=== PATIENT | female | born 1995 | race Caucasian/White ===

== ENCOUNTER 2022-03-20 09:49 | Emergency (ER) | payer BC, SELFPAY ==
[2022-03-20 09:50] VITALS: BP 105/88; PULSE 71; RESP 20; TEMP 36.4; O2SAT 100
--- NOTE | 2022-03-20 10:00 | ED.FEMALEGU ---
HPI - Female Genitourinary General Chief complaint: Urogenital-Female Stated complaint: Uti Time Seen by Provider: 03/20/22 09:53 History of Present Illness HPI Narrative: 26-year-old female presents the emergency room for evaluation of suprapubic pain and dysuria. Patient was seen in urgent care yesterday for similar symptoms and diagnosed with a urinary tract infection. Patient was started on Macrobid and Azo. Patient states that she has taken 2 doses of Macrobid, and is not feeling any relief yet. Patient denies fever. Related Data Allergies Allergy/AdvReac Type Severity Reaction Status Date / Time No Known Allergies Allergy Mild Verified 03/20/22 10:15 Review of Systems Review of Systems: CONSTITUTIONAL: Denies fever, chills, or sweats. EYES: Denies visual changes, redness, or discharge. ENT: Denies rhinorrhea, congestion, sore throat, or otalgia. CARDIOVASCULAR: Denies chest pain, palpitations, or edema. RESPIRATORY: Denies cough or dyspnea. GASTROINTESTINAL: Denies abdominal pain, nausea, vomiting, or diarrhea. GENITOURINARY: Reports dysuria and hematuria SKIN: Denies rash or itching. MUSCULOSKELETAL: Denies back pain, joint pain, or myalgia. NEUROLOGIC: Denies headache, numbness, dizziness, or weakness. PSYCHIATRIC: Denies anxiety or depression. Exam Narrative: GENERAL: Well-appearing, well-nourished, no physical limitations, and in no acute distress. HEAD: Normocephalic, atraumatic. EYES: Conjunctivae normal, PERRLA and EOMI. CHEST: Clear to auscultation. No respiratory distress. No wheezes rales or rhonchi. No tenderness. HEART: Regular rate and rhythm. No murmur heard. Normal peripheral pulses. ABDOMEN: Soft, suprapubic tenderness, nondistended, normal active bowel sounds. BACK: No CVA tenderness EXTREMITIES: Normal range of motion. No edema. No clubbing or cyanosis SKIN: Warm, dry, no rash. No noted wounds NEURO: No focal deficits. Alert and oriented x3. MAEW. CN's II-XI intact bilaterally, normal gait PSYCH: Cooperative. Normal mood and affect. Course Vital Signs Vital signs: Vital Signs Temperature 36.4 C 03/20/22 09:50 Pulse Rate 71 03/20/22 09:50 Respiratory Rate 20 03/20/22 09:50 Blood Pressure 105/88 03/20/22 09:50 Pulse Oximetry 100 03/20/22 09:50 Oxygen Delivery Room Air 03/20/22 09:50 Temperature 36.4 C 03/20/22 09:50 Pulse Rate 73 03/20/22 10:48 Respiratory Rate 18 03/20/22 10:48 Blood Pressure 125/83 03/20/22 10:48 Pulse Oximetry 97 03/20/22 10:48 Oxygen Delivery Room Air 03/20/22 09:50 MDM - Female Genitourinary Lab Data Labs: Lab Results 03/20/22 Range/Units 10:13 Urine Color Light red H (Yellow) Urine Appearance Clear (Clear) Urine pH 5.5 (5.0-9.0) Ur Specific [place] 1.010 (1.001-1.035) Urine Protein Negative (Negative) mg/dL Urine Glucose (UA) Trace H (Negative) mg/dL Urine Ketones Negative (Negative) mg/dL Ur Blood (Man) Negative (Negative) Urine Nitrate Positive H (Negative) Urine Bilirubin Negative (Negative) Urine Urobilinogen 0.2 (<2.0) mg/dL Leukocyte Esterase Rfl Negative (Negative) JORGE/UL Urine RBC 0-2 (0-2) /hpf Urine WBC 0-3 /hpf Ur Squamous Epith Cells Rare (Few) /hpf Urine Bacteria Trace /hpf Urine Characteristics Cloudy Discharge Plan Discharge Clinical Impression: Urinary tract infection Patient Disposition: Home, Self-Care Condition: Stable Instructions: Antibiotic Form, Urinary Tract Infection in Women (ED) Prescriptions: New cephalexin 500 mg capsule 500 mg PO Q12H 7 Days Qty: 14 0RF Follow-up/Referrals: Joaquin,MD Morgan [Primary Care Provider] - Time of Disposition: 11:28
[2022-03-20 10:35] LABS: Appearance Urine Clear (Clear); Bilirubin Urine Negative (Negative); Blood Urine Negative (Negative); Glucose Urine UA Trace mg/dL (Negative); Ketones Urine Negative (Negative); Leukocyte Esterase Ur Negative LEU/UL (Negative); Nitrate Urine Positive (Negative); Protein Urine Negative (Negative); Urobilinogen Urine 0.2 mg/dL (<2.0); pH Urine 5.5 (5.0-9.0)
[2022-03-20 10:38] LABS: Bacteria Urine Trace /hpf; RBC Urine 0-2 /hpf (0-2); Squamous Epithelial Cell Urine Rare /hpf (Few); WBC Urine 0-3 /hpf
[2022-03-20 10:48] VITALS: BP 125/83; PULSE 73; RESP 18; O2SAT 97
[2022-03-20 11:19] LABS: Add Urine Microscopic? YES; Color Urine Light Red (Yellow)
== END 2022-03-20 11:39 | disposition home or self-care (01) ==
PROVIDERS: Emergency Provider Nurse Practitioner Family; PCP Internal Medicine
DX: N39.0 Urinary tract infection, site not specified (principal)
CPT/HCPCS: 81001; 99283

== ENCOUNTER → 2022-06-17 15:04 | Outpatient (CLI) | payer BC, SELFPAY ==
--- NOTE | ~2022-06-17 | US_ITS ---
EXAMINATION: US OB transvaginal DATE: 06/17/2022 15:29 INDICATION: Gestational dating. TECHNIQUE: Real-time transabdominal and transvaginal obstetric ultrasound. No prior studies for hernandez dwyer. FINDINGS: No prior studies for comparison. The uterus measures 8.6 x 4.1 x 5.1 cm. There is an intrauterine gestational sac, with pole ifeanyi ntified. The crown rump length measures 0.53 cm, which correlates with a estimated gestational age o f 6 weeks 2 days. heart tones are identified measuring 111 BPM. The ovaries are not visualize d. IMPRESSION: 1. SL IUP with an EGA of 6 weeks, 2 days (EDC by current ultrasound of 02/08/2023). Reviewed, dictated and finalized at location B. IMPRESSION: 1. SL IUP with an EGA of 6 weeks, 2 days (EDC by current ultrasound of 3).
== END ==
PROVIDERS: PCP Internal Medicine; Visit Provider Obstetrics & Gynecology Gynecology
DX: O36.80X0 Pregnancy with inconclusive fetal viability, not applicable or unspecified (principal); Z3A.01 Less than 8 weeks gestation of pregnancy
CPT/HCPCS: 76817

== ENCOUNTER → 2022-07-12 12:58 | Outpatient (CLI) | payer BC, SELFPAY ==
--- NOTE | ~2022-07-12 | US_ITS ---
EXAMINATION: US OB transvaginal DATE: 07/12/2022 13:15 INDICATION: First trimester viability assessment TECHNIQUE: Real-time pelvic transabdominal and transvaginal ultrasound was performed. COMPARISON: 06/17/2022 FINDINGS: The uterus measures 9.8 x 5.2 x 5.8 cm. There is an intrauterine gestational sac. A yolk s ac is identified. No heart tones are identified. The crown rump length measures 1.9 cm, w hich correlates with an estimated gestational age of 8 weeks and 3 day(s) (+/-) 5 day(s). The ovaries are not visualized however no adnexal abnormality is seen. There is no free fluid in the pelvis. IMPRESSION: 1. failure. Reviewed, dictated and finalized at location F. MATERNITY IMPRESSION: 1. failure.
== END ==
PROVIDERS: PCP Internal Medicine; Visit Provider Advanced Practice Midwife
DX: O36.80X0 Pregnancy with inconclusive fetal viability, not applicable or unspecified (principal); E04.1 Nontoxic single thyroid nodule; Z3A.00 Weeks of gestation of pregnancy not specified
CPT/HCPCS: 76817

== ENCOUNTER → 2022-07-23 14:19 | Outpatient (CLI) | payer BC, SELFPAY ==
--- NOTE | ~2022-07-23 | US_ITS ---
US thyroid INDICATION: Nontoxic thyroid nodule TECHNIQUE: Real-time sonographic images of the thyroid gland were obtained. COMPARISON: No prior studies for comparison. FINDINGS: The right thyroid lobe measures 3.9 x 1.5 x 1.6 cm. The left thyroid lobe measures 4.5 x 1 .5 x 1.3 cm. There is normal echotexture and echogenicity throughout the thyroid gland. No discrete n odules identified. Normal vascular flow is present. IMPRESSION: 1. Normal thyroid without discrete nodule or abnormal vascularity. Reviewed, dictated and finalized at location A. [employer]
== END ==
PROVIDERS: PCP Internal Medicine; Visit Provider Advanced Practice Midwife
DX: E04.1 Nontoxic single thyroid nodule (principal)
CPT/HCPCS: 76536

== ENCOUNTER 2022-07-25 06:12 | Emergency (ER) | payer BC, SELFPAY ==
[2022-07-25 06:51] VITALS: BP 122/89; PULSE 68; RESP 18; TEMP 37.2; O2SAT 97
--- NOTE | 2022-07-25 07:19 | PC.NURSE ---
Report given to Kathryn(JANNYR)JUAN C at this time.
[2022-07-25 07:29] LABS: Basophils Percent Auto 0.2 % (0.2-1.2); Eosinophils Absolute Auto 0.2 K/mm3 (0-0.3); Eosinophils Percent Auto 1.4 % (0-4.4); Hematocrit 39.7 % (37.0-47.0); Hemoglobin 13.8 g/dL (12.0-15.0); Immature Granulocyte Absolute 0.05 K/mm3 (0.00-0.031); Immature Granulocyte Percent A 0.4 % (0-0.5); Lymphocytes Absolute Auto 1.62 K/mm3 (0.9-3.2); Lymphocytes Percent Auto 11.5 % (18.3-44.2); Mean Corpuscular HGB Conc 34.8 g/dl (32-36); Mean Corpuscular Hemoglobin 30.6 pg (26-34); Mean Platelet Volume 10.3 fl (7.4-10.4); Monocytes Absolute Auto 0.8 K/mm3 (0.1-0.6); Monocytes Percent Auto 5.6 % (2.6-8.5); Neutrophils Absolute Auto 11.4 K/mm3 (1.3-6.7); Neutrophils Percent Auto 80.9 % (45.5-73.1); Platelet Count Result 219 k/mm3 (150-375); Red Blood Count 4.51 M/mm3 (4.2-5.4); Red Cell Distribution Width 12.5 % (11.5-14.5)
--- NOTE | 2022-07-25 07:50 | ED.FEMALEGU ---
HPI - Female Genitourinary General Chief complaint: Vaginal Bleeding Stated complaint: vag bleed/8 weeks preg Time Seen by Provider: 07/25/22 06:59 History of Present Illness HPI Narrative: Patient is a 26-year-old female who presents ER miscarrying. Patient is a G1, P0. She reports she had an ultrasound 2 weeks ago that showed an IUP that was not developing appropriately. She has been at home awaiting passage of products of conception. Last night she began having cramping. She started passing clots and bleeding. She did pass the tissue. She reports she went through 2 pads before midnight and has gone through 2 pads since midnight. She has some slight dizziness. No nausea or vomiting. Cramping's in her lower abdomen and nonradiating. No alleviating factors. Related Data Allergies Allergy/AdvReac Type Severity Reaction Status Date / Time No Known Allergies Allergy Mild Verified 07/25/22 06:52 Review of Systems Review of Systems: All systems reviewed & are unremarkable except as noted in HPI and below Constitutional: Constitutional: Denies chills and Denies fatigue ENT: Denies nasal congestion and Denies sore throat Cardiovascular: Cardiovascular: Denies chest pain, Denies rapid heart rate, Denies radiating jaw, neck or arm pain and Denies slow heart rate Respiratory: Respiratory: Denies cough, Denies dyspnea and Denies wheezing Gastrointestinal: Gastrointestinal: Reports abdominal pain, Denies nausea and Denies vomiting Genitourinary: Genitourinary: Reports abnormal vaginal bleeding, Denies nocturia and Denies dysuria PMFSH Past Medical History Medical History (Updated 07/25/22 @ 10:29 by Kasi Santos MD) Healthy female adult Surgical History Surgical History (Updated 07/25/22 @ 07:51 by Kasi Santos MD) History of knee surgery Social History Social History (Updated 07/25/22 @ 07:51 by Kasi Santos MD) Smoking status: Never smoker Exam Narrative: GENERAL: Well-appearing, well-nourished, and in no acute distress. HEAD: Normocephalic, atraumatic. EYES: PERRL and EOMI. ENT: Mucous membranes moist. CHEST: Clear to auscultation. No respiratory distress. HEART: Regular rate and rhythm. Normal peripheral pulses. ABDOMEN: Soft, nontender, nondistended. : Normal external genitalia. Large amount of clot burden within the vagina. There is tissue consistent with placental present as been removed. Blood cleared and no additional discharge within the vagina. Cervix fingertip but no hemorrhage or continuous oozing. EXTREMITIES: Normal range of motion. No edema. SKIN: Warm, dry, no rash. NEURO: Alert and oriented x3. PSYCH: Normal mood and affect. Course Course Emergency Course: Patient resting comfortably. Discussed pelvic exam with patient. Contacted patient's OB Dr. Harmon. Recommends follow-up in clinic for serial beta hCGs. Patient aware of diagnosis and treatment plan. Blood type is O+ and patient does not require RhoGAM. Vital Signs Vital signs: Vital Signs Temperature 98.9 F 07/25/22 06:51 Pulse Rate 68 07/25/22 06:51 Respiratory Rate 18 07/25/22 06:51 Blood Pressure 122/89 07/25/22 06:51 Pulse Oximetry 97 07/25/22 06:51 Temperature 98.9 F 07/25/22 06:51 Pulse Rate 68 07/25/22 06:51 Respiratory Rate 18 07/25/22 06:51 Blood Pressure 122/89 07/25/22 06:51 Pulse Oximetry 97 07/25/22 06:51 MDM - Female Genitourinary Lab Data 07/25/22 07:23 Labs: Lab Results 07/25/22 07/25/22 07/25/22 Range/Units 06:43 06:43 06:43 WBC (4.5-10.0) K/mm3 RBC (4.2-5.4) M/mm3 Hgb (12.0-15.0) g/dL Hct (37.0-47.0) % MCV (80-100) fl MCH (26-34) pg MCHC (32-36) g/dl RDW (11.5-14.5) % Plt Count (150-375) k/mm3 MPV (7.4-10.4) fl Immature Gran % (Auto) (0-0.5) % Neut % (Auto) (45.5-73.1) % Lymph % (Auto) (18.3-44.2) % Parke % (Auto) (2.6-8.5) %
[2022-07-25 08:08] LABS: Anion Gap 8 mmol/L (8-16); Blood Urea Nitrogen 12 mg/dL (7-17); Calcium 8.7 mg/dL (8.4-10.2); Carbon Dioxide 22 mmol/L (22-30); Chloride 107 mmol/L (98-107); Estimated CRCL calculation 140 ml/min; Estimated Glomerular Filt Rate > 60; Glucose 116 mg/dL (65-110); Potassium 3.7 mmol/L (3.4-5.0); Sodium 137 mmol/L (137-145)
[2022-07-25] MEDS: SODIUM CHLORIDE 0.9% IV 1,000 ML 999 ML IV CONT (08:16)
[2022-07-25] MEDS: MORPHINE SULFATE (*CRX) 4 MG/ML INJ IV PUSH (08:16)
[2022-07-25 10:50] VITALS: BP 130/74; RESP 16
== END 2022-07-25 10:50 | disposition home or self-care (01) ==
PROVIDERS: Emergency Medicine; Emergency Provider Emergency Medicine; PCP Internal Medicine
DX: O03.9 Complete or unspecified spontaneous abortion without complication (principal)
CPT/HCPCS: 36415; 80048; 84702; 85025; 85461; 86850; 86900; 86901; 96361; 96374; 99284; J2270; J7030

== ENCOUNTER 2025-04-14 10:11 | Outpatient (CLI) | payer OTHER, SELFPAY ==
--- NOTE | ~2025-04-14 | US_ITS ---
EXAMINATION: US OB <= 14 weeks fetus DATE: 04/14/2025 10:29 INDICATION: Gestational dating TECHNIQUE: Real-time transabdominal and transvaginal obstetric ultrasound. FINDINGS: No prior studies for comparison. The uterus measures 13 x 7.5 x 8.9 cm. There is an intrauterine gestational sac, with pole identified. The crown rump length measures 6.8 cm, which correlates with a estimated gestational age of 13 weeks 0 days. heart tones are identified measuring 135 BPM. Anterior placenta. Amniotic fluid subjectively normal. IMPRESSION: 1. SL IUP with an EGA of 13 weeks, 0 days (EDC by current ultrasound of 10/20/2025). Reviewed, dictated and finalized at location O. IMPRESSION: 1. SL IUP with an EGA of 13 weeks, 0 days (EDC by current ultrasound of 10/20/19).
== END 2025-04-14 10:12 | disposition home or self-care (01) ==
LOC: MICIMG 10:13
PROVIDERS: PCP Obstetrics & Gynecology; Visit Provider Nurse Practitioner Obstetrics & Gynecology
DX: N91.2 Amenorrhea, unspecified (principal); Z3A.13 13 weeks gestation of pregnancy
CPT/HCPCS: 76801